=== PATIENT | male | born 1955 | race Caucasian/White ===

== ENCOUNTER 2025-06-08 13:42 | Inpatient (IN) | payer MEDICARE, OTHER ==
[~2025-06-08] VITALS: Ht 180.3 cm; Wt 79.4 kg
[2025-06-08 14:00] VITALS: O2SAT 98
[2025-06-08 14:29] LABS: PLATELET COUNT (AUTO) 192 K/uL (150-450); RED BLOOD CELL COUNT(AUTO) 4.52 MIL/uL (4.5-6.0); RED CELL DISTRIBUTION WIDTH 12.2 % (11.5-15.0); WHITE BLOOD COUNT (AUTO) 8.9 K/uL (4.3-11.0)
[2025-06-08 14:36] LABS: CALCIUM, SERUM 8.6 mg/dL (8.5-10.1); CREATININE 1.1 mg/dL (0.6-1.3); SODIUM SERUM 139 mmol/L (136-145); UREA NITROGEN, BLOOD 16 mg/dL (7-18)
[2025-06-08 14:42] LABS: APPEARANCE,URINE CLEAR (CLEAR); BLOOD, URINE NEGATIVE Ery/uL (NEGATIVE); LEUKOCYTE ESTERASE ,URINE NEGATIVE (NEGATIVE); NITRITE, URINE NEGATIVE (NEGATIVE); UGLUCOSE NEGATIVE (NEGATIVE)
[2025-06-08 14:44] LABS: TOTAL PROTEIN, SERUM 7.2 g/dL (6.4-8.2)
[2025-06-08 15:01] LABS: ADD URINE CULTURE NO; SQUAMOUS EPITHELIAL CELL,UR None Seen /HPF (None Seen)
[2025-06-08 15:10] LABS: ASPARTATE AMINOTRANSFERASE 18 U/L (15-37)
[2025-06-08 15:24] LABS: AMPHETAMINE, URINE NEGATIVE (NEGATIVE); BARBITURATE, URINE NEGATIVE (NEGATIVE); BENZODIAZEPINE, URINE NEGATIVE (NEGATIVE); CANNABINOID, URINE NEGATIVE (NEGATIVE); COCCAINE, URINE NEGATIVE (NEGATIVE); OPIATE, URINE NEGATIVE (NEGATIVE)
[2025-06-08] MEDS ORDERED: LORAZEPAM 0.5 MG TABLET PO PRN ×2 (18:00)
[2025-06-08] MEDS ORDERED: MAGNESIUM HYDROXIDE 30 ML UDC PO PRN (18:00)
[2025-06-08] MEDS ORDERED: MAG HYDROX/AL HYDROX/SIMETH 30 ML UDC PO PRN (18:00)
[2025-06-08] MEDS ORDERED: ACETAMINOPHEN 325 MG TABLET PO PRN (18:00)
[2025-06-08 21:52] VITALS: BP 125/77; TEMP 97.8; O2SAT 98
[2025-06-09 07:39] LABS: ASPARTATE AMINOTRANSFERASE 19.0 U/L (15-37); CALCIUM, SERUM 8.6 mg/dL (8.5-10.1); CREATININE 0.9 mg/dL (0.6-1.3); SODIUM SERUM 142.0 mmol/L (136-145); TOTAL PROTEIN, SERUM 6.7 g/dL (6.4-8.2); UREA NITROGEN, BLOOD 13.0 mg/dL (7-18)
[2025-06-09 07:43] LABS: LDL 100 mg/dL (0-99)
[2025-06-09] MEDS: PANTOPRAZOLE 40 MG TABLET.DR PO SCH (07:54)
[2025-06-09 08:00] VITALS: BP 149/73; TEMP 97.8; O2SAT 98
[2025-06-09] MEDS ORDERED: RISP0.5T65 PO (11:22)
[2025-06-09] MEDS ORDERED: LEVO25TA82 PO (11:22)
[2025-06-09] MEDS ORDERED: MEMA10TA56 PO (11:22)
[2025-06-09] MEDS ORDERED: LOSA25TA27 PO (11:22)
[2025-06-09] MEDS ORDERED: DONE10TA44 PO (11:22)
[2025-06-09] MEDS ORDERED: TRAZ-257 PO (11:22)
[2025-06-09 16:00] VITALS: BP 137/76; TEMP 98.1; O2SAT 98
[2025-06-09] MEDS: DIVALPROEX SODIUM 125 MG CAP.SPRINK PO SCH (16:47)
[2025-06-09 19:51] VITALS: BP 148/72; TEMP 98.1; O2SAT 100
[2025-06-09] MEDS: ATORVASTATIN 10 MG TABLET PO SCH (21:25)
[2025-06-09] MEDS: QUETIAPINE FUMARATE 25 MG TABLET PO SCH (21:25)
[2025-06-09] MEDS: TEMAZEPAM 7.5 MG CAPSULE PO PRN (22:30)
[2025-06-10 08:00] VITALS: BP 107/78; TEMP 97.9; O2SAT 99
[2025-06-10] MEDS: NEOMY SULF/BACITRAC ZN/POLY 15 GM TUBE TP SCH (08:16)
[2025-06-10] MEDS: LEVOTHYROXINE SODIUM 25 MCG TABLET PO SCH (11:38)
[2025-06-10 16:00] VITALS: BP 129/69; TEMP 97.7; O2SAT 98
[2025-06-10] MEDS: TEMAZEPAM 7.5 MG CAPSULE PO PRN (21:21)
[2025-06-10 21:50] VITALS: BP 139/69; TEMP 97.8; O2SAT 98
[2025-06-11 08:00] VITALS: BP 136/77; TEMP 98.6; O2SAT 100
[2025-06-11] MEDS: MEMANTINE HCL 5 MG TABLET PO SCH (08:26)
[2025-06-11] MEDS: DONEPEZIL 5 MG TABLET PO SCH (08:26)
[2025-06-11 16:00] VITALS: BP 158/77; TEMP 98.8; O2SAT 99
[2025-06-11 20:00] VITALS: BP 157/58; TEMP 98.4; O2SAT 96
[2025-06-12 08:00] VITALS: BP 146/82; TEMP 97.8; O2SAT 100
[2025-06-12] MEDS: LOSARTAN POTASSIUM 25 MG TABLET PO SCH (13:05)
[2025-06-12 16:19] VITALS: BP 147/84; TEMP 97.8; O2SAT 98
[2025-06-12 20:00] VITALS: BP 123/56; TEMP 98.4; O2SAT 98
[2025-06-13 08:21] VITALS: BP 138/90; TEMP 98; O2SAT 97
[2025-06-13 16:07] VITALS: BP 110/59; TEMP 98.1; O2SAT 100
[2025-06-13 20:49] VITALS: BP 127/69; TEMP 98.3; O2SAT 97
[2025-06-14 08:00] VITALS: BP 120/95; TEMP 98.2; O2SAT 99
[2025-06-14 15:14] VITALS: BP 153/72; TEMP 98.3; O2SAT 98
[2025-06-14 17:12] VITALS: BP 130/70
[2025-06-14 20:39] VITALS: BP 124/68; TEMP 98; O2SAT 97
[2025-06-15 08:00] VITALS: BP 126/66; TEMP 98.1; O2SAT 97
[2025-06-15 17:04] VITALS: BP 125/68; TEMP 98.6; O2SAT 96
[2025-06-15 19:50] VITALS: BP 123/73; TEMP 98.6; O2SAT 100
[2025-06-16 08:00] VITALS: BP 130/94; TEMP 98.7; O2SAT 97
[2025-06-16] MEDS: QUETIAPINE FUMARATE 25 MG TABLET PO SCH ×2 (08:51→16:18)
[2025-06-16 16:00] VITALS: BP 132/78; TEMP 98.1; O2SAT 98
[2025-06-16] MEDS: DIVALPROEX SODIUM 125 MG CAP.SPRINK PO SCH (16:18)
[2025-06-16 20:17] VITALS: BP 110/59; TEMP 98.4; O2SAT 96
[2025-06-17 08:00] VITALS: BP 137/72; TEMP 98.7; O2SAT 98
[2025-06-17 16:00] VITALS: BP 130/70; TEMP 98.1; O2SAT 98
[2025-06-17 20:00] VITALS: BP 111/82; TEMP 97.9
[2025-06-18 08:00] VITALS: BP 133/75; TEMP 97.8; O2SAT 100
[2025-06-18 16:00] VITALS: BP 113/80; TEMP 98.2; O2SAT 97
[2025-06-18 20:04] VITALS: BP 114/60; TEMP 98.2; O2SAT 98
[2025-06-19 07:09] LABS: PLATELET COUNT (AUTO) 206 K/uL (150-450); RED BLOOD CELL COUNT(AUTO) 5.01 MIL/uL (4.5-6.0); RED CELL DISTRIBUTION WIDTH 12.1 % (11.5-15.0); WHITE BLOOD COUNT (AUTO) 8.1 K/uL (4.3-11.0)
[2025-06-19 07:21] LABS: CALCIUM, SERUM 9.0 mg/dL (8.5-10.1); CREATININE 1.2 mg/dL (0.6-1.3); SODIUM SERUM 143.0 mmol/L (136-145); UREA NITROGEN, BLOOD 20.0 mg/dL (7-18)
[2025-06-19 08:00] VITALS: BP 112/69; TEMP 97.9; O2SAT 96
[2025-06-19 13:30] VITALS: BP 124/69; TEMP 97.9
== END 2025-06-19 15:10 | DRG 885 ==
LOC: ER 13:45 → GPS 17:12
PROVIDERS: ADMIT Psychiatry & Neurology Psychosomatic Medicine; ATTEND Registered Nurse Psychiatric/Mental Health
DX: F25.0 Schizoaffective disorder, bipolar type (principal); F02.82 Dementia in other diseases classified elsewhere, unspecified severity, with psychotic disturbance; F29 Unspecified psychosis not due to a substance or known physiological condition; I10 Essential (primary) hypertension; E03.9 Hypothyroidism, unspecified; E78.5 Hyperlipidemia, unspecified; G30.0 Alzheimer's disease with early onset; Z73.6 Limitation of activities due to disability; F32.A Depression, unspecified; S90.411A Abrasion, right great toe, initial encounter; S50.812A Abrasion of left forearm, initial encounter; X58.XXXA Exposure to other specified factors, initial encounter; Y93.9 Activity, unspecified; Y92.89 Other specified places as the place of occurrence of the external cause; Z20.822 Contact with and (suspected) exposure to COVID-19
CPT/HCPCS: 36415; 70450-TC; 80048-TC; 80053-TC; 80061-TC; 80076-TC; 80164-TC; 81001; 82962-TC; 85025-TC; 87081-TC

== ENCOUNTER 2025-07-09 01:21 | Inpatient (IN) | payer MEDICARE, OTHER ==
[~2025-07-09] VITALS: Ht 172.7 cm; Wt 77.1 kg
[~2025-07-09 01:21] MED LIST: DONE10TA44 PO; LEVO25TA82 PO; LOSA25TA27 PO; MEMA10TA56 PO; RISP0.5T65 PO; TRAZ-257 PO
[2025-07-09 01:54] LABS: PLATELET COUNT (AUTO) 117 K/uL (150-450); RED BLOOD CELL COUNT(AUTO) 4.41 MIL/uL (4.5-6.0); RED CELL DISTRIBUTION WIDTH 12.3 % (11.5-15.0); WHITE BLOOD COUNT (AUTO) 6.1 K/uL (4.3-11.0)
[2025-07-09 02:04] LABS: CALCIUM, SERUM 8.2 mg/dL (8.5-10.1); CREATININE 1.1 mg/dL (0.6-1.3); SODIUM SERUM 144 mmol/L (136-145); UREA NITROGEN, BLOOD 11 mg/dL (7-18)
[2025-07-09 02:07] LABS: ASPARTATE AMINOTRANSFERASE 17 U/L (15-37); TOTAL PROTEIN, SERUM 6.8 g/dL (6.4-8.2)
[2025-07-09 02:42] LABS: APPEARANCE,URINE CLEAR (CLEAR); BLOOD, URINE NEGATIVE Ery/uL (NEGATIVE); LEUKOCYTE ESTERASE ,URINE NEGATIVE (NEGATIVE); NITRITE, URINE NEGATIVE (NEGATIVE); UGLUCOSE NEGATIVE (NEGATIVE)
[2025-07-09 02:47] LABS: ADD URINE CULTURE NO
[2025-07-09 02:48] LABS: SQUAMOUS EPITHELIAL CELL,UR None Seen /HPF (None Seen)
[2025-07-09 02:53] LABS: AMPHETAMINE, URINE NEGATIVE (NEGATIVE); BARBITURATE, URINE NEGATIVE (NEGATIVE); BENZODIAZEPINE, URINE NEGATIVE (NEGATIVE); CANNABINOID, URINE NEGATIVE (NEGATIVE); COCCAINE, URINE NEGATIVE (NEGATIVE); OPIATE, URINE NEGATIVE (NEGATIVE)
[2025-07-09] MEDS ORDERED: ATOR20TA PO (03:13)
[2025-07-09] MEDS ORDERED: PANT40TA49 PO (03:13)
[2025-07-09] MEDS ORDERED: DIVA125C5 PO (03:13)
[2025-07-09] MEDS ORDERED: QUET25TA PO ×2 (03:13)
[2025-07-09] MEDS ORDERED: ACETAMINOPHEN 325 MG TABLET PO PRN (04:30)
[2025-07-09] MEDS ORDERED: TEMAZEPAM 7.5 MG CAPSULE PO PRN (04:30)
[2025-07-09] MEDS ORDERED: MAGNESIUM HYDROXIDE 30 ML UDC PO PRN (04:30)
[2025-07-09] MEDS ORDERED: MAG HYDROX/AL HYDROX/SIMETH 30 ML UDC PO PRN (04:30)
[2025-07-09] MEDS: BLOOD SUGAR DIAGNOSTIC 1 EACH STRIP IN ONE (04:31)
[2025-07-09 04:52] VITALS: BP 145/67; TEMP 97.7
[2025-07-09] MEDS: LORAZEPAM 0.5 MG TABLET PO PRN (05:42)
[2025-07-09] MEDS: LEVOTHYROXINE SODIUM 25 MCG TABLET PO SCH (06:41)
[2025-07-09 08:00] VITALS: BP 154/67; TEMP 97.7; O2SAT 99
[2025-07-09] MEDS: MEMANTINE HCL 5 MG TABLET PO SCH (08:44)
[2025-07-09] MEDS: DONEPEZIL 5 MG TABLET PO SCH (08:44)
[2025-07-09] MEDS: LOSARTAN POTASSIUM 25 MG TABLET PO SCH (08:44)
[2025-07-09] MEDS: PANTOPRAZOLE 40 MG TABLET.DR PO SCH (08:44)
[2025-07-09] MEDS: QUETIAPINE FUMARATE 25 MG TABLET PO SCH (12:08)
[2025-07-09] MEDS: DIVALPROEX SODIUM 250 MG TABLET.DR PO SCH (12:08)
[2025-07-09 16:03] VITALS: BP 150/68; TEMP 97.8; O2SAT 97
[2025-07-09] MEDS: ATORVASTATIN 10 MG TABLET PO SCH (21:41)
[2025-07-09] MEDS: QUETIAPINE FUMARATE 100 MG TABLET PO SCH (21:42)
[2025-07-10] MEDS: TEMAZEPAM 7.5 MG CAPSULE PO PRN (00:09)
[2025-07-10 07:34] LABS: CREATININE 0.9 mg/dL (0.6-1.3)
[2025-07-10 07:41] LABS: ASPARTATE AMINOTRANSFERASE 16.0 U/L (15-37); CALCIUM, SERUM 8.3 mg/dL (8.5-10.1); CREATININE 1.0 mg/dL (0.6-1.3); SODIUM SERUM 144.0 mmol/L (136-145); TOTAL PROTEIN, SERUM 6.3 g/dL (6.4-8.2); UREA NITROGEN, BLOOD 11.0 mg/dL (7-18)
[2025-07-10 08:00] VITALS: BP 133/64; TEMP 97.7; O2SAT 99
[2025-07-10 08:15] LABS: LDL 55.0 mg/dL (0-99)
[2025-07-10] MEDS: OLANZAPINE 10 MG VIAL IM STA (10:23)
[2025-07-10 16:00] VITALS: BP 115/80; TEMP 97; O2SAT 100
[2025-07-10] MEDS: OLANZAPINE 2.5 MG TABLET PO SCH (16:06)
[2025-07-10 20:10] VITALS: BP 127/79; TEMP 98.3; O2SAT 97
[2025-07-10] MEDS: QUETIAPINE FUMARATE 100 MG TABLET PO SCH (21:14)
[2025-07-10] MEDS ORDERED: OLANZAPINE 10 MG TABLET PO SCH (22:00)
[2025-07-11 08:00] VITALS: BP 128/64; TEMP 98.1; O2SAT 97
[2025-07-11] MEDS: QUETIAPINE FUMARATE 25 MG TABLET PO SCH (08:58)
[2025-07-11] MEDS: LORAZEPAM 0.5 MG TABLET PO PRN (10:04)
[2025-07-11 15:57] VITALS: BP 117/72; TEMP 97.8; O2SAT 98
[2025-07-11 21:21] VITALS: BP 123/74; TEMP 98; O2SAT 98
[2025-07-12 08:00] VITALS: BP 110/67; TEMP 97.7; O2SAT 96
[2025-07-12 12:40] LABS: PLATELET COUNT (AUTO) 133 K/uL (150-450); RED BLOOD CELL COUNT(AUTO) 4.66 MIL/uL (4.5-6.0); RED CELL DISTRIBUTION WIDTH 12.4 % (11.5-15.0); WHITE BLOOD COUNT (AUTO) 8.2 K/uL (4.3-11.0)
[2025-07-12] MEDS: OLANZAPINE 10 MG VIAL IM STA (14:33)
[2025-07-12 16:00] VITALS: BP_SYST 106; BP_SYST 94; BP_DIAS 60; BP_DIAS 69; TEMP 98.2; O2SAT 96
[2025-07-12] MEDS: OLANZAPINE 10 MG VIAL IM ONE (17:00)
[2025-07-12] MEDS: LORAZEPAM INJ 2 MG/ML VIAL IM STA (18:27)
[2025-07-12 20:53] VITALS: BP 94/52; TEMP 98; O2SAT 97
[2025-07-13 08:00] VITALS: BP 116/55; TEMP 97.8; O2SAT 97
[2025-07-13 09:45] VITALS: BP 141/90
[2025-07-13 16:00] VITALS: BP 122/62; TEMP 97.8; O2SAT 98
[2025-07-13 19:59] VITALS: BP 138/57; TEMP 97.8; O2SAT 99
[2025-07-13] MEDS: DIVALPROEX SODIUM 250 MG TABLET.DR PO SCH (22:02)
[2025-07-13] MEDS: QUETIAPINE FUMARATE 100 MG TABLET PO SCH (22:03)
[2025-07-13] MEDS: QUETIAPINE FUMARATE 25 MG TABLET PO SCH (22:04)
[2025-07-14 08:00] VITALS: BP 106/81; TEMP 97.7; O2SAT 98
[2025-07-14 09:02] VITALS: BP 106/81; TEMP 97.7; O2SAT 98
[2025-07-14 16:00] VITALS: BP_SYST 106; BP_SYST 139; BP_DIAS 73; BP_DIAS 81; TEMP 97.7; O2SAT 100
[2025-07-14 17:14] VITALS: BP 139/73; TEMP 97.7; O2SAT 100
[2025-07-14 20:00] VITALS: BP 145/68; TEMP 97.5; O2SAT 97
[2025-07-15 08:00] VITALS: BP 121/73; TEMP 98.6; O2SAT 97
[2025-07-15] MEDS: HALOPERIDOL LACTATE INJ 5 MG/ML VIAL IM STA (11:23)
[2025-07-15] MEDS: LORAZEPAM INJ 2 MG/ML VIAL IM STA (11:23)
[2025-07-15 16:00] VITALS: BP 119/61; TEMP 98.6; O2SAT 98
[2025-07-15 16:13] VITALS: BP 119/61; TEMP 98.6; O2SAT 98
[2025-07-15] MEDS: OLANZAPINE 2.5 MG TABLET PO SCH (17:00)
[2025-07-15 20:06] VITALS: BP 114/73; TEMP 98.1; O2SAT 99
[2025-07-15] MEDS: OLANZAPINE 5 MG TABLET PO SCH (21:11)
[2025-07-16 08:00] VITALS: BP 114/50; TEMP 97.9; O2SAT 96
[2025-07-16] MEDS: OLANZAPINE 10 MG VIAL IM ONE (11:32)
[2025-07-16 16:00] VITALS: BP 139/73; TEMP 98.6; O2SAT 96
[2025-07-16] MEDS: DIVALPROEX SODIUM 500 MG TABLET.DR PO SCH (21:06)
[2025-07-16] MEDS: OLANZAPINE 10 MG TABLET PO SCH (21:07)
[2025-07-17 08:00] VITALS: BP 120/58; TEMP 98; O2SAT 100
[2025-07-17] MEDS: OLANZAPINE 2.5 MG TABLET PO SCH (08:55)
[2025-07-17] MEDS: OLANZAPINE 10 MG VIAL IM STA (17:02)
[2025-07-17] MEDS: HALOPERIDOL LACTATE INJ 5 MG/ML VIAL IM STA (19:18)
[2025-07-17 21:40] VITALS: BP 124/62; TEMP 98.1; O2SAT 96
[2025-07-18] MEDS: OLANZAPINE ZYDIS 5 MG TAB.RAPDIS PO SCH ×2 (09:00→21:10)
[2025-07-18 21:55] VITALS: BP 134/70; TEMP 98.1; O2SAT 99
[2025-07-19 16:00] VITALS: BP_SYST 131; BP_SYST 8; BP_DIAS 3; BP_DIAS 89; TEMP 98.2; O2SAT 9; O2SAT 96
[2025-07-19 20:09] VITALS: BP 131/76; O2SAT 96
[2025-07-20 08:00] VITALS: BP 139/100; TEMP 98.2; O2SAT 96
[2025-07-20 16:00] VITALS: BP 100/65; TEMP 97.8; O2SAT 99
[2025-07-20 19:36] VITALS: BP 105/76; TEMP 97.8; O2SAT 99
[2025-07-21 07:35] LABS: PLATELET COUNT (AUTO) 157 K/uL (150-450); RED BLOOD CELL COUNT(AUTO) 4.65 MIL/uL (4.5-6.0); RED CELL DISTRIBUTION WIDTH 12.3 % (11.5-15.0); WHITE BLOOD COUNT (AUTO) 5.6 K/uL (4.3-11.0)
[2025-07-21 08:00] VITALS: BP 131/70; TEMP 97.8; O2SAT 95
[2025-07-21] MEDS: DIVALPROEX SODIUM 250 MG TABLET.DR PO SCH (12:56)
[2025-07-21 16:04] VITALS: BP 115/90; TEMP 98.7; O2SAT 97
[2025-07-21 20:09] VITALS: BP 125/69; TEMP 98.2; O2SAT 96
[2025-07-22 08:00] VITALS: BP 127/80; TEMP 97.8; O2SAT 97
[2025-07-22] MEDS: DIVALPROEX SODIUM 250 MG TABLET.DR PO ONE (13:37)
[2025-07-22 16:00] VITALS: BP 127/85; TEMP 97.9; O2SAT 97
[2025-07-22] MEDS: DIVALPROEX SODIUM 500 MG TABLET.DR PO SCH ×2 (16:18→21:46)
[2025-07-22 20:06] VITALS: BP 128/82; TEMP 97.9; O2SAT 97
[2025-07-23] MEDS: risperiDONE-M 0.5 MG TAB.RAPDIS PO SCH (11:01)
[2025-07-23] MEDS: OLANZAPINE ZYDIS 5 MG TAB.RAPDIS PO SCH (12:54)
[2025-07-23] MEDS: TEMAZEPAM 7.5 MG CAPSULE PO SCH (21:08)
[2025-07-23] MEDS: MEMANTINE HCL 5 MG TABLET PO SCH (21:08)
[2025-07-24 08:00] VITALS: BP 110/79; TEMP 98; O2SAT 98
[2025-07-24 16:00] VITALS: BP 121/77; TEMP 97.8; O2SAT 96
[2025-07-24] MEDS: DIVALPROEX SODIUM 125 MG CAP.SPRINK PO SCH ×2 (16:09→21:19)
[2025-07-24 21:30] VITALS: BP 118/72; TEMP 98; O2SAT 98
[2025-07-25 08:00] VITALS: BP 132/76; TEMP 97.8; O2SAT 98
[2025-07-25 16:00] VITALS: BP 113/75; TEMP 98.6; O2SAT 99
[2025-07-25] MEDS: HALOPERIDOL LACTATE INJ 5 MG/ML VIAL IM STA (18:23)
[2025-07-25] MEDS: LORAZEPAM INJ 2 MG/ML VIAL IM STA (18:23)
[2025-07-25 20:27] VITALS: BP 102/60; TEMP 98.6; O2SAT 96
[2025-07-25] MEDS: risperiDONE-M 0.5 MG TAB.RAPDIS PO SCH (22:30)
[2025-07-26 08:00] VITALS: BP 121/69; TEMP 97.7; O2SAT 94
[2025-07-26 16:00] VITALS: BP 103/70; TEMP 98; O2SAT 95
[2025-07-26 16:06] LABS: PLATELET COUNT (AUTO) 97 K/uL (150-450); RED BLOOD CELL COUNT(AUTO) 4.61 MIL/uL (4.5-6.0); RED CELL DISTRIBUTION WIDTH 13.0 % (11.5-15.0); WHITE BLOOD COUNT (AUTO) 9.7 K/uL (4.3-11.0)
[2025-07-26 16:11] LABS: CALCIUM, SERUM 8.3 mg/dL (8.5-10.1); CREATININE 1.0 mg/dL (0.6-1.3); SODIUM SERUM 138.0 mmol/L (136-145); UREA NITROGEN, BLOOD 17.0 mg/dL (7-18)
[2025-07-26 16:33] LABS: EOSINOPHILS % (MANUAL) 1 % (0-4); LYMPHOCYTES % (MANUAL) 26 % (16-48); MONOCYTES % (MANUAL) 9 % (0-11.0); NEUTROPHILS % (MANUAL) 64 (42-76); PLATELET ESTIMATE DECREASED
[2025-07-26 19:54] VITALS: BP 113/72; TEMP 98; O2SAT 96
[2025-07-27 08:00] VITALS: BP 110/94; TEMP 97.9; O2SAT 98
[2025-07-27 08:27] LABS: SERUM AMMONIA 31.0 umol/L (11-32)
[2025-07-27 09:10] LABS: ASPARTATE AMINOTRANSFERASE 21.0 U/L (15-37); CALCIUM, SERUM 8.3 mg/dL (8.5-10.1); CREATININE 0.9 mg/dL (0.6-1.3); SODIUM SERUM 140.0 mmol/L (136-145); TOTAL PROTEIN, SERUM 6.3 g/dL (6.4-8.2); UREA NITROGEN, BLOOD 17.0 mg/dL (7-18); VALPROIC ACID 98.0 ug/mL (50-100)
[2025-07-27 16:00] VITALS: BP 122/91; TEMP 98.2; O2SAT 98
[2025-07-27 20:04] VITALS: BP 117/62; TEMP 98.2; O2SAT 97
[2025-07-28 08:00] VITALS: BP 124/98; TEMP 97.9; O2SAT 95
[2025-07-28 16:07] VITALS: BP 119/66; TEMP 98.1; O2SAT 100
[2025-07-28 20:00] VITALS: BP 113/63; TEMP 98.4; O2SAT 94
[2025-07-28 20:39] LABS: APPEARANCE,URINE CLEAR (CLEAR); BLOOD, URINE NEGATIVE Ery/uL (NEGATIVE); LEUKOCYTE ESTERASE ,URINE NEGATIVE (NEGATIVE); NITRITE, URINE NEGATIVE (NEGATIVE); UGLUCOSE NEGATIVE (NEGATIVE)
[2025-07-28 20:57] LABS: PLATELET COUNT (AUTO) 107 K/uL (150-450); RED BLOOD CELL COUNT(AUTO) 4.30 MIL/uL (4.5-6.0); RED CELL DISTRIBUTION WIDTH 12.6 % (11.5-15.0); WHITE BLOOD COUNT (AUTO) 6.6 K/uL (4.3-11.0)
[2025-07-28 21:11] LABS: ADD URINE CULTURE NO; SQUAMOUS EPITHELIAL CELL,UR Rare /HPF (None Seen)
[2025-07-28] MEDS ORDERED: OLANZAPINE ZYDIS 5 MG TAB.RAPDIS PO SCH (22:00)
[2025-07-28] MEDS ORDERED: DIVALPROEX SODIUM 125 MG CAP.SPRINK PO SCH (22:00)
[2025-07-28] MEDS: TEMAZEPAM 7.5 MG CAPSULE PO SCH (22:12)
[2025-07-29 08:00] VITALS: BP 122/59; TEMP 97.7; O2SAT 95
[2025-07-29] MEDS: OLANZAPINE ZYDIS 5 MG TAB.RAPDIS PO SCH (09:31)
[2025-07-29] MEDS: DIVALPROEX SODIUM 125 MG CAP.SPRINK PO SCH (09:31)
[2025-07-29 13:08] LABS: SERUM AMMONIA 3.0 umol/L (11-32)
[2025-07-29 13:10] LABS: ASPARTATE AMINOTRANSFERASE 21.0 U/L (15-37); CALCIUM, SERUM 8.6 mg/dL (8.5-10.1); CREATININE 1.0 mg/dL (0.6-1.3); SODIUM SERUM 140.0 mmol/L (136-145); TOTAL PROTEIN, SERUM 6.6 g/dL (6.4-8.2); UREA NITROGEN, BLOOD 20.0 mg/dL (7-18)
[2025-07-29 13:40] LABS: VALPROIC ACID 85.0 ug/mL (50-100)
[2025-07-29 13:44] LABS: PLATELET COUNT (AUTO) 108 K/uL (150-450); RED BLOOD CELL COUNT(AUTO) 4.55 MIL/uL (4.5-6.0); RED CELL DISTRIBUTION WIDTH 12.7 % (11.5-15.0); WHITE BLOOD COUNT (AUTO) 6.1 K/uL (4.3-11.0)
[2025-07-29 16:00] VITALS: BP 132/70; TEMP 98.7; O2SAT 98
[2025-07-29 16:14] LABS: RHEUMATOID FACTOR SCREEN NEGATIVE (NEGATIVE)
[2025-07-29 16:33] LABS: IRON, SERUM 68.0 ug/dl (50-175)
[2025-07-29] MEDS: ENSURE ENLIVE 237 ML LIQUID (VANILLA) PO SCH (17:26)
[2025-07-30 07:34] LABS: PLATELET COUNT (AUTO) 123 K/uL (150-450); RED BLOOD CELL COUNT(AUTO) 4.35 MIL/uL (4.5-6.0); RED CELL DISTRIBUTION WIDTH 12.7 % (11.5-15.0); WHITE BLOOD COUNT (AUTO) 6.9 K/uL (4.3-11.0)
[2025-07-30 08:00] VITALS: BP 129/72; TEMP 97.8; O2SAT 98
[2025-07-30 11:12] LABS: *ANA ANTI-CENTROMERE B AB <0.2 AI (0.0-0.9); *ANA ANTI-DNA(DS) AB, QN <1 IU/mL (0-9); *ANA ANTI-JO-1 <0.2 AI (0.0-0.9); *ANA ANTICHROMATIN ANTIBODY <0.2 AI (0.0-0.9); *ANA RNP ANTIBODIES 0.2 AI (0.0-0.9); *ANA SJOGREN'S ANTI-SS-A <0.2 AI (0.0-0.9); *ANA SJOGREN'S ANTI-SS-B <0.2 AI (0.0-0.9); *ANAANTI-SCLERODERMA-70 AB <0.2 AI (0.0-0.9); *ANASMITH AB <0.2 AI (0.0-0.9); FOLIC ACID 8.9 ng/mL (>3.0); HEPATITIS B CORE AB, TOTAL Negative (Negative)
[2025-07-30] MEDS: FUROSEMIDE 40 MG TABLET PO ONE (11:17)
[2025-07-30 14:10] LABS: IMMUNOGLOBULIN A, SERUM 297 mg/dL (61-437); IMMUNOGLOBULIN M, SERUM 28 mg/dL (20-172)
[2025-07-30 15:21] LABS: HIV-1/2 ANTIBODY NON REACTIVE (NONREACTIVE)
== END 2025-07-30 13:15 | DRG 885 ==
LOC: ER 01:31 → GPS 03:09
PROVIDERS: ADMIT Psychiatry & Neurology Psychosomatic Medicine; ATTEND Nurse Practitioner Family
DX: F25.0 Schizoaffective disorder, bipolar type (principal); F02.82 Dementia in other diseases classified elsewhere, unspecified severity, with psychotic disturbance; D69.59 Other secondary thrombocytopenia; D61.811 Other drug-induced pancytopenia; F29 Unspecified psychosis not due to a substance or known physiological condition; E03.9 Hypothyroidism, unspecified; I10 Essential (primary) hypertension; D64.9 Anemia, unspecified; R13.10 Dysphagia, unspecified; E78.5 Hyperlipidemia, unspecified; K21.9 Gastro-esophageal reflux disease without esophagitis; Z20.822 Contact with and (suspected) exposure to COVID-19; G30.9 Alzheimer's disease, unspecified; Z73.6 Limitation of activities due to disability; T43.595A Adverse effect of other antipsychotics and neuroleptics, initial encounter; Y92.89 Other specified places as the place of occurrence of the external cause
CPT/HCPCS: 36415; 70450-TC; 71045-TC; 76700-TC; 80048-TC; 80053-TC; 80061-TC; 80076-TC; 80164-TC; 81001; 82140-TC; 82565-TC; 82607-TC; 82728-TC; 82784; 82962-TC; 83540-TC; 84155; 84165; 84439-TC; 84443-TC; 85025-TC; 85027-TC; 85045-TC; 86140-TC; 86225; 86235; 86317; 86334; 86431-TC; 86704; 86803; 87081-TC; 87086-TC; 87340; 87806; 93307-TC; 93970-TC; 97112-TC; 97116-TC; 97164; 97530-TC; J1200; J1630; J2060; J3490